=== PATIENT | male | born 1975 | race Caucasian/White ===

== ENCOUNTER → 2019-11-08 16:51 | Outpatient (CLI) | payer MEDICAID, SELFPAY ==
[2019-11-08 17:58] LABS: Cholesterol 152 mg/dL (140-199); HDL Cholesterol 30 mg/dL (40-60); LDL Cholesterol Calculated 72 mg/dL (<100); Triglycerides 252 mg/dL (35-150)
[2019-11-08 17:59] LABS: Hemoglobin A1C% w Est Avg Glu 5.6 % (4.0-6.0)
== END ==
PROVIDERS: PCP Family Medicine; Referring Provider Family Medicine; Visit Provider Family Medicine
DX: Z00.01 Encounter for general adult medical examination with abnormal findings (principal)
CPT/HCPCS: 36415; 80061; 83036